=== PATIENT | female | born 1960 | race Caucasian/White ===

== ENCOUNTER 2016-11-25 00:45 | Inpatient (IN) | payer OTHER ==
[2016-11-25] MEDS ORDERED: SODIUM CHLORIDE 0.9% 1,000 ML IV STA (00:51)
[2016-11-25] MEDS ORDERED: PANTOPRAZOLE 40 MG/10 ML VIAL IVP STA (00:51)
[2016-11-25] MEDS ORDERED: ONDANSETRON 4 MG/2 ML VIAL IVP STA (00:51)
--- NOTE | 2016-11-25 01:04 | ED ---
General Adult HPI - General Chief complaint: Nausea/Vomiting/Diarrhea Stated complaint: Nausea/Vomiting/Weakness/Mouth Pain Time Seen by Provider: 11/25/16 00:49 Source: EMS, RN notes reviewed, old records reviewed Mode of arrival: EMS - History of Present Illness Initial comments: This is a 56-year-old female here for evaluation. Patient presents today for evaluation of vomiting blood. Patient has a prior history of vomiting blood, no prior history of GI bleed. No anticoagulation. Denies significant alcohol abuse. Patient is no abdominal pain. No blood in her stool. Again recent travel history sick contacts. Patient admits also weight loss nausea and spitting up blood, symptoms since June progressively worsening - Related Data Home Medications Medication Instructions Recorded Confirmed Ibuprofen [Motrin] 11/25/16 Allergies Allergy/AdvReac Type Severity Reaction Status Date / Time No Known Allergies Allergy Verified 11/25/16 02:41 Review of Systems ROS Statement: Those systems with pertinent positive or pertinent negative responses have been documented in the HPI. ROS Other: All systems not noted in ROS Statement are negative. Past Medical History Additional Past Medical History / Comment(s): ulcers History of Any Multi-Drug Resistant Organisms: None Reported Past Surgical History: No Surgical Hx Reported Past Psychological History: No Psychological Hx Reported Smoking Status: Never smoker Past Alcohol Use History: None Reported Past Drug Use History: None Reported General Exam General appearance: alert, in no apparent distress Head exam: Present: atraumatic, normocephalic, normal inspection Eye exam: Present: normal appearance, PERRL, EOMI. Absent: scleral icterus, conjunctival injection, periorbital swelling ENT exam: Present: other (Positive trismus, positive oral mass) Neck exam: Present: normal inspection. Absent: tenderness, meningismus, lymphadenopathy Respiratory exam: Present: normal lung sounds bilaterally. Absent: respiratory distress, wheezes, rales, rhonchi, stridor Cardiovascular Exam: Present: regular rate, normal rhythm, normal heart sounds. Absent: systolic murmur, diastolic murmur, rubs, gallop, clicks GI/Abdominal exam: Present: soft, normal bowel sounds. Absent: distended, tenderness, guarding, rebound, rigid Extremities exam: Present: normal inspection, full ROM, normal capillary refill. Absent: tenderness, pedal edema, joint swelling, calf tenderness Back exam: Present: normal inspection Neurological exam: Present: alert, oriented X3, CN II-XII intact Psychiatric exam: Present: normal affect, normal mood Skin exam: Present: warm, dry, intact, normal color. Absent: rash Course Vital Signs 11/25/16 11/25/16 11/25/16 00:49 01:48 02:51 Temperature 97.1 F L Pulse Rate 94 57 L 63 Respiratory 20 18 18 Rate Blood Pressure 120/60 134/79 97/56 O2 Sat by Pulse 99 100 99 Oximetry - Reevaluation(s) Reevaluation #1: 11/25/16 03:22 Spoke with on-call ENT, patient's case requires higher level of care Medical Decision Making - Medical Decision Making 48 female in the ER for evaluation throat pain mouth pain difficulty to eat, inability to swallow, inability to open mouth, patient has large oral mass both under direct and on CAT scan. Patient will be admitted for ENT evaluation oncology evaluation - Lab Data Result diagrams: 11/25/16 01:15 11/25/16 01:15 Lab Results 11/25/16 11/25/16 11/25/16 Range/Units 01:15 01:15 01:15 WBC 19.5 H (3.8-10.6) k/uL RBC 3.09 L (3.80-5.40) m/uL Hgb 9.2 L (11.4-16.0) gm/dL Hct 27.3 L (34.0-46.0) % MCV 88.1 (80.0-100.0) fL MCH 29.9 (25.0-35.0) pg MCHC 33.9 (31.0-37.0) g/dL RDW 14.5 (11.5-15.5) % Plt Count 645 H (150-450) k/uL Neutrophils % 86 % Lymphocytes % 8 % Monocytes % 4 % Eosinophils % 1 % Basophils % 0 % Neutrophils # 16.7 H (1.3-7.7) k/uL Lymphocytes # 1.6 (1.0-4.8) k/uL Monocytes # 0.7 (0-1.0) k/uL Eosinophils # 0.1 (0-0.7) k/uL Basophils # 0.0 (0-0.2) k/uL PT (9.0-12.0) sec INR (<1.1) APTT (22.0-30.0) sec Sodium 134 L (137-145) mmol/L Potassium 3.1 L (3.5-5.1) mmol/L Chloride 101 (98-107) mmol/L Carbon Dioxide 20 L (22-30) mmol/L Anion Gap 13 mmol/L BUN 8 (7-17) mg/dL Creatinine 0.70 (0.52-1.04) mg/dL Est GFR (MDRD) Af Amer >60 (>60 ml/min/1.73 sqM) Est GFR (MDRD) Non-Af >60 (>60 ml/min/1.73 sqM) Glucose 175 H (74-99) mg/dL Calcium 8.8 (8.4-10.2) mg/dL Magnesium 1.5 L (1.6-2.3) mg/dL Total Bilirubin 0.4 (0.2-1.3) mg/dL AST 12 L (14-36) U/L ALT 24 (9-52) U/L Alkaline Phosphatase 51 (38-126) U/L Total Creatine Kinase 22 L (30-135) U/L CK-MB (CK-2) <0.2 (0.0-2.4) ng/mL CK-MB (CK-2) Rel Index Troponin I <0.012 (0.000-0.034) ng/mL Total Protein 5.8 L (6.3-8.2) g/dL Albumin 3.0 L (3.5-5.0) g/dL Lipase 171 (23-300) U/L Serum Alcohol <10 mg/dL Blood Type Blood Type Recheck Antibody Screen Spec Expiration Date 11/25/16 11/25/16 Range/Units 01:15 01:15 WBC (3.8-10.6) k/uL RBC (3.80-5.40) m/uL Hgb (11.4-16.0) gm/dL Hct (34.0-46.0) % MCV (80.0-100.0) fL MCH (25.0-35.0) pg MCHC (31.0-37.0) g/dL RDW (11.5-15.5) % Plt Count (150-450) k/uL Neutrophils % % Lymphocytes % % Monocytes % % Eosinophils % % Basophils % % Neutrophils # (1.3-7.7) k/uL Lymphocytes # (1.0-4.8) k/uL Monocytes # (0-1.0) k/uL Eosinophils # (0-0.7) k/uL Basophils # (0-0.2) k/uL PT 11.7 (9.0-12.0) sec INR 1.2 (<1.1) APTT 21.3 L (22.0-30.0) sec Sodium (137-145) mmol/L Potassium (3.5-5.1) mmol/L Chloride (98-107) mmol/L Carbon Dioxide (22-30) mmol/L Anion Gap mmol/L BUN (7-17) mg/dL Creatinine (0.52-1.04) mg/dL Est GFR (MDRD) Af Amer (>60 ml/min/1.73 sqM) Est GFR (MDRD) Non-Af (>60 ml/min/1.73 sqM) Glucose (74-99) mg/dL Calcium (8.4-10.2) mg/dL Magnesium (1.6-2.3) mg/dL Total Bilirubin (0.2-1.3) mg/dL AST (14-36) U/L ALT (9-52) U/L Alkaline Phosphatase (38-126) U/L Total Creatine Kinase (30-135) U/L CK-MB (CK-2) (0.0-2.4) ng/mL CK-MB (CK-2) Rel Index Troponin I (0.000-0.034) ng/mL Total Protein (6.3-8.2) g/dL Albumin (3.5-5.0) g/dL Lipase (23-300) U/L Serum Alcohol mg/dL Blood Type A Positive Blood Type Recheck CABO Indicated Antibody Screen NEGATIVE Spec Expiration Date 11/28/2016 - 1656 - Radiology Data Radiology results: report reviewed (CT soft tissue neck is positive for a oral mass, ), image reviewed Disposition Clinical Impression: Oral cancer, Malnutrition Disposition: ADMITTED IP TO THIS [facility] Condition: Fair Referrals: None,Stated [Primary Care Provider] - 1-2 days
[2016-11-25] MEDS ORDERED: ACETAMINOPHEN IV (For NPO) 1,000 MG in EMPTY BAG 1 BAG IVPB STA (01:24)
[2016-11-25] MEDS ORDERED: LIDOCAINE VISCOUS 2% 15 ML CUP MUCOUS MEM STA (01:24)
[2016-11-25] MEDS ORDERED: RX INFO: IV CONTRAST WAS GIVEN 1 EACH MISC MISCELLANE PRN (01:24)
[2016-11-25] MEDS ORDERED: MORPHINE SULFATE 4 MG/ML SYRINGE IVP STA (01:24)
[2016-11-25 01:44] LABS: ALT 24 U/L (9-52); AST 12 U/L (14-36); Alcohol <10 mg/dL; Alkaline Phosphatase 51 U/L (38-126); Anion Gap 13 mmol/L; Blood Urea Nitrogen 8 mg/dL (7-17); Calcium 8.8 mg/dL (8.4-10.2); Carbon Dioxide 20 mmol/L (22-30); Chloride 101 mmol/L (98-107); Glucose 175 mg/dL (74-99); Magnesium 1.5 mg/dL (1.6-2.3); Non-African American GFR(MDRD) >60 (>60 ml/min/1.73 sqM); Potassium 3.1 mmol/L (3.5-5.1); Sodium 134 mmol/L (137-145); Total Bilirubin 0.4 mg/dL (0.2-1.3); Total Protein 5.8 g/dL (6.3-8.2)
[2016-11-25 01:49] LABS: Basophils % (A) 0 %; CH 29.7; CHCM 33.9; Eosinophils # (A) 0.1 k/uL (0-0.7); Eosinophils % (A) 1 %; HCT 27.3 % (34.0-46.0); HDW 2.65; HGB 9.2 gm/dL (11.4-16.0); Luc # (Auto) 0.31; Luc % (Auto) 2; Lymphocytes # (A) 1.6 k/uL (1.0-4.8); Lymphocytes % (A) 8 %; MCH 29.9 pg (25.0-35.0); MCHC 33.9 g/dL (31.0-37.0); MCV 88.1 fL (80.0-100.0); Mean Platelet Volume 7.2; Monocytes # (A) 0.7 k/uL (0-1.0); Monocytes % (A) 4 %; Neutrophils # (A) 16.7 k/uL (1.3-7.7); Neutrophils % (A) 86 %; RBC 3.09 m/uL (3.80-5.40); RDW 14.5 % (11.5-15.5); WBC 19.5 k/uL (3.8-10.6); WBC (Perox) 20.74
[2016-11-25 01:55] LABS: Creatine Kinase 22 U/L (30-135)
[2016-11-25 01:57] LABS: INR 1.2 (<1.1); Prothrombin Time 11.7 sec (9.0-12.0)
[2016-11-25 01:58] LABS: Partial Thromboplastin Time 21.3 sec (22.0-30.0)
[2016-11-25 02:08] LABS: Creatine Kinase MB <0.2 ng/mL (0.0-2.4); Troponin I <0.012 ng/mL (0.000-0.034)
--- NOTE | 2016-11-25 02:31 | CT ---
EXAMINATION TYPE: CT soft tissue neck w con DATE OF EXAM: 11/25/2016 2:08 AM COMPARISON: NONE HISTORY: Rt. Mouth pain, vomiting bright red blood, CT DLP: 299.10 mGycm Automated exposure control for dose reduction was used. CONTRAST: CT scan of the neck is performed following with IV Contrast, patient injected with 100 mL of Omnipaqu e 300. Axial images are obtained, coronal and sagittal reformatted images are reviewed. FINDINGS: There is a predominantly low density 7 x 4 cm mass in the oral cavity on the right side. The mass ext ends to the mandible and involves the prevertebral soft tissues on the right side as well as the righ t tonsil and the right side of the posterior tongue. Mass extends to the posterior nasopharynx and th e soft palate. There is normal contrast opacification of the carotid arteries and jugular veins. The epiglottis appe ars normal. The subglottic trachea appears normal. There is an enlarged 1.5 cm right submandibular ly mph node. These sub the cervical spine is intact. Mandibular salivary glands are symmetric. The super ior mediastinum appears normal. There is normal branching pattern of the great vessels on the aortic arch. The thyroid gland is symmetric. IMPRESSION: There is a large mass in the oral cavity on the right side. This is suspicious for tumor . An inflammatory mass is in the differential diagnosis. There is an enlarged right submandibular lym ph node.
[2016-11-25] MEDS: MAGNESIUM SULFATE-D5W PMX 1 GM in DEXTROSE/WATER 1 100ML.BAG IVPB SCH ×2 (02:33→04:15)
[2016-11-25] MEDS ORDERED: AMPICILLIN-SULBACTAM 3 GM in SODIUM CHLORIDE 0.9% 100 ML IVPB STA (02:38)
[2016-11-25] MEDS ORDERED: DEXAMETHASONE SOD PHOSPHATE 10 MG/ML 1 ML VIAL IV STA (02:38)
[2016-11-25] MEDS: POTASSIUM CHLORIDE 20 MEQ, LIDOCAINE 2% INJ 20 MG in SODIUM CHLORIDE 0.9% 100 ML IVPB SCH ×3 (04:22→07:55)
[2016-11-25] MEDS ORDERED: MORPHINE SULFATE 4 MG/ML SYRINGE IVP PRN (04:29)
[2016-11-25 05:47] VITALS: BMI 20.1
[2016-11-25] MEDS: SODIUM CHLORIDE 0.9% 1,000 ML IV ONE ×2 (06:23→16:23)
[2016-11-25] MEDS: AMPICILLIN-SULBACTAM 3 GM in SODIUM CHLORIDE 0.9% 100 ML IVPB SCH ×3 (07:55→18:35)
[2016-11-25] MEDS ORDERED: NOREPINEPHRINE 1 MG/ML 4 ML VIAL IV ONE (08:49)
[2016-11-25] MEDS ORDERED: SODIUM CHLORIDE 0.9% 250 ML BAG ONE (08:49)
[2016-11-25] MEDS ORDERED: SODIUM CHLORIDE 0.9% 1,000 ML BAG ONE (08:49)
--- NOTE | 2016-11-25 10:43 | CONS ---
DATE OF CONSULTATION: REASON FOR CONSULTATION: Oral cancer. HISTORY: This is a 56-year-old white female who states that she has had at least a 4 to 5 month history of progressive right-sided sore throat. She has developed further dysphagia with this and even trismus. She is able to tolerate liquids, but is not able to eat much as far solids or chew. 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 She was also seen by a dentist who recommended a biopsy. She was treated with antibiotics a couple of weeks ago, which did not help her symptoms at all. She has been spitting up some blood intermittently and has had weight loss and nausea. She did have CT scan of the neck last night, which showed a 7 x 4 cm oropharyngeal mass on the right with deep soft tissue invasion including into the prevertebral space. Past medical history is negative for heart, lung, liver or kidney disease, diabetes, seizure disorder, bleeding disorders. PAST SURGICAL HISTORY: None. ALLERGIES: No known drug allergies. MEDICATIONS AT HOME: Ibuprofen. SOCIAL HISTORY: Does not have a smoking history at all. Alcohol consumption minimal. REVIEW OF SYSTEMS: Noncontributory other than as above. PHYSICAL EXAM: GENERAL: The patient is alert, awake and oriented x3. She has no respiratory distress or stridor. Skin is pale. HEENT: Head normocephalic, atraumatic. Ears, bilateral canals clear. Tympanic membranes unremarkable and mobile. The nose shows no drainage or obstruction. Mouth and throat: Patient does have mild to moderate trismus. There is a large right oral cavity/oropharynx mass. This is in the retromolar trigone and right tonsillar fossa as where it appeared centered with a bulky mass, but also a central ulceration with minimal old blood. Oropharyngeal airway is adequate at least 2.5 cm across. The hypopharynx and larynx exam shows this does extend the lateral base of tongue on the right, but overall airway is good. Vocal cord mobility is normal. Neck is supple. There is approximately a 1.5 cm right submandibular node, but otherwise no adenopathy was noted. CT scan reviewed and reviewed with the patient and her family today as far as results. ASSESSMENT: Right oropharyngeal mass/highly suspicious for malignancy with invasion and likely secondary cervical lymphadenopathy on the right. PLAN: The patient is receiving supportive care presently including pain management and IV fluids. She is on prophylactic antibiotics although this does not appear to be infectious even though her white count was elevated. She does also have some anemia. Also had some abnormalities in her electrolytes, which are being addressed. As I had discussed with the ER physician last night, I would recommend further evaluation and treatment at a tertiary care institution such as [facility] or [facility]. The head and neck surgeon contacts at these institutions would be Dr. Garcia at [facility] and Dr. Del Castillo at [facility]. The patient will need biopsy and workup and evaluation with a bigger center, which could better managed this large mass. If it is felt that she could be treated with chemotherapy and radiotherapy here locally then this would be fine but she certainly needs evaluation including biopsy at a larger center. I did explain this to Dr. Pizano last night also and he apparently did try to transfer to [facility], but they would not accept and the other centers noted above would be more appropriate anyway. It does appear that the patient has primary service admitted to already as well as possibly oncology consult and will leave it to their discretion also. If the patient is able to go home then that consultation could be obtained as output /referral; however, if it is felt that she could not go home then she would have to be transferred. If there are questions or concerns, please feel free to contact me.
[2016-11-25] MEDS ORDERED: SODIUM CHLORIDE 0.9% 1,000 ML IV ONE (16:10)
--- NOTE | 2016-11-25 16:27 | HP ---
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 She was seen by a bunch of clinics including dentists and outpatient clinics, given antibiotics, recommended for biopsy. She came into the hospital due to worsening swallowing ability. CAT scan showed a ( ) 4 cm oropharyngeal mass in the right soft tissue invasion into the prevertebral space. Past medical history is negative for any diabetes, seizures bleeding disorders, heart, lungs, liver or kidney. PAST SURGICAL HISTORY: None. ALLERGIES: None. MEDICATIONS: Ibuprofen. SOCIAL HISTORY: No smoking or alcohol. REVIEW OF SYSTEMS: Fourteen-point review of systems negative except as mentioned above. PHYSICAL EXAM: She is thin, cachectic female. She is giving appropriate answers, alert and oriented x3. HEAD: Normocephalic, atraumatic. ENT: She has a large right oral cavity mass. She has a bulky mass on the tonsillar area, central ulceration. Ear, nose and throat consult was appreciated. CT is appreciated. ASSESSMENT: 1. Right oropharyngeal mass highly suspicious for malignancy. 2. Cervical adenopathy. PLAN: Just got an ear, nose and throat consult and discussed the case with the nurse and Kostas Ricci physician from ear, nose and throat is going to accept the transfer in this patient. There is no active bleeding as far as we could tell. We will make sure she is stable prior to her discharge.
[2016-11-25] MEDS ORDERED: NOREPINEPHRINE 16 MG in SODIUM CHLORIDE 0.9% 250 ML IV SCH (17:30)
[2016-11-25] MEDS ORDERED: PROPOFOL 500 MG in EMPTY BAG 1 BAG IV SCH ×2 (17:30→18:00)
[2016-11-25] MEDS ORDERED: PROPOFOL 50 ML IV ONE (17:48)
[2016-11-25 17:56] LABS: ALT 27 U/L (9-52); AST 21 U/L (14-36); Alkaline Phosphatase 21 U/L (38-126); Blood Urea Nitrogen 11 mg/dL (7-17); Chloride 113 mmol/L (98-107); Glucose 256 mg/dL (74-99); Magnesium 2.2 mg/dL (1.6-2.3); Non-African American GFR(MDRD) >60 (>60 ml/min/1.73 sqM); Phosphorous 4.6 mg/dL (2.5-4.5); Sodium 136 mmol/L (137-145); Total Bilirubin <0.1 mg/dL (0.2-1.3); Total Protein 2.3 g/dL (6.3-8.2)
[2016-11-25 17:57] LABS: Basophils % (A) 0 %; CH 29.4; CHCM 28.7; Eosinophils % (A) 0 %; HDW 2.81; Hypochromasia Marked; Luc # (Auto) 0.12; Luc % (Auto) 1; Lymphocytes # (A) 2.6 k/uL (1.0-4.8); Lymphocytes % (A) 15 %; MCH 28.3 pg (25.0-35.0); MCV 103.3 fL (80.0-100.0); Macrocytosis Slight; Mean Platelet Volume 8.2; Monocytes # (A) 0.7 k/uL (0-1.0); Monocytes % (A) 4 %; Neutrophils % (A) 80 %; RBC 1.16 m/uL (3.80-5.40); RDW 15.1 % (11.5-15.5); WBC 17.4 k/uL (3.8-10.6); WBC (Perox) 15.88
[2016-11-25 18:01] LABS: Anion Gap 13 mmol/L
[2016-11-25 18:06] LABS: INR 1.9 (<1.1); Partial Thromboplastin Time 48.8 sec (22.0-30.0); Prothrombin Time 18.2 sec (9.0-12.0)
[2016-11-25 18:12] LABS: Glucose,Whole Blood 234 mg/dL (75-99)
[2016-11-25 18:17] LABS: HGB 3.3 gm/dL (11.4-16.0); MCHC 27.4 g/dL (31.0-37.0)
[2016-11-25 18:18] LABS: Potassium 3.9 mmol/L (3.5-5.1)
[2016-11-25 18:19] LABS: Calcium 6.4 mg/dL (8.4-10.2); Carbon Dioxide 10 mmol/L (22-30)
--- NOTE | 2016-11-25 18:21 | XR ---
EXAMINATION TYPE: XR chest 1V portable DATE OF EXAM: 11/25/2016 6:14 PM COMPARISON: NONE HISTORY: Check tube placement TECHNIQUE: Single frontal view of the chest is obtained. FINDINGS: Heart and mediastinum are normal. Lungs are clear. There is a nasogastric tube that appear s in good position. There is endotracheal tube that appears in good position. There are chest leads. IMPRESSION: Normal chest
[2016-11-25] MEDS ORDERED: SODIUM BICARB 8.4% 50 ML SYR (1 MEQ/ML) IV STA (19:02)
[2016-11-25 19:11] LABS: ABG Base Excess -16.2 mmol/L; ABG HCO3 12 mmol/L (21-25); ABG PCO2 39 mmHg (35-45); ABG PO2 91 mmHg (83-108); ABG TCO2 13 mmol/L (19-24)
[2016-11-25 19:25] LABS: CH 30.7; CHCM 31.9; HDW 2.82; MCH 29.5 pg (25.0-35.0); MCHC 30.4 g/dL (31.0-37.0); MCV 96.9 fL (80.0-100.0); Mean Platelet Volume 8.5; RDW 13.9 % (11.5-15.5); WBC 18.7 k/uL (3.8-10.6)
[2016-11-25 19:27] LABS: HCT 17.4 % (34.0-46.0); HGB 5.3 gm/dL (11.4-16.0)
[2016-11-25 19:31] LABS: Glucose,Whole Blood 209 mg/dL (75-99)
[2016-11-25 19:45] LABS: Ionized Calcium 2.4 mg/dL (4.5-5.3)
[2016-11-25] MEDS ORDERED: CALCIUM GLUCONATE 2,000 MG in SODIUM CHLORIDE 0.9% 100 ML IVPB ONE (19:47)
[2016-11-25 19:48] LABS: INR 1.7 (<1.1); Partial Thromboplastin Time 43.8 sec (22.0-30.0); Prothrombin Time 16.4 sec (9.0-12.0)
[2016-11-25 19:50] LABS: ABG Base Excess -8.6 mmol/L; ABG HCO3 16 mmol/L (21-25); ABG PCO2 34 mmHg (35-45); ABG PH 7.31 (7.35-7.45); ABG PO2 312 mmHg (83-108); ABG TCO2 17 mmol/L (19-24)
[2016-11-25 20:30] VITALS: BP 88/53; PULSE 85; RESP 20; TEMP 97
--- NOTE | 2016-11-25 20:56 | PN ---
ADDENDUM DATE OF SERVICE: 11/25/2016; 5:45 p.m. This is a 56-year-old white female who just had a respiratory arrest. Apparently a blood vessel broke loose. She was pouring some blood out of her mouth. She went into respiratory arrest. JEAN BRIGGS was called, which patient never lost her pulse. Unable to get a low blood pressure, but during the code a blood pressure was found near 130s to 140s over 60s. The patient never lost her pulse, never went into cardiac shock. Due to the bleeding, 2 units of blood were given through transfusion and stat labs were reordered again. Dr. Kaba was called, the patient was intubated and was taken to the ICU. He will be running the ICU care. I discussed the case with the family, the 2 daughters who were here, they are comfortable with the care given and understand what happened to her. .
--- NOTE | 2016-11-25 21:13 | PN ---
DATE OF SERVICE: 11/25/2016 ADDENDUM: Saw the patient with her daughter and the nurse. Blood pressure was low. Manually it was about 80 to 90 systolic over 40 to 50. This was at 1551 on 11/25/2016. Ordered normal saline to be given. Wide open IV which was performed. Stat labs were put in at 1551. CBC and chem panel, magnesium. Patient says even though blood pressure is low she was feeling fine at that point. Her oxygen level is 100% on pulse ox. Ordered stat labs. Told the nurse to transfer patient to the ICU at 1551 and normal saline was running at wide open. Nurse to call me with results or if anything else occurred. This is on the fifth floor this occurred. We are awaiting transfer to [facility]. We are waiting transfer to the ICU at 1551, to monitor blood pressure until the transfer occurs. There is no active bleeding at this point and she said she has felt fine the patient did at 1551.
[2016-11-25 21:50] LABS: Manual Review Performed
--- NOTE | 2016-11-26 12:01 | CONS ---
DATE OF CONSULTATION: 11/25/2016 This is a delayed entry note on Ms. Aubrie Donahue who is a 56-year-old female. Patient on the fifth floor oncology unit, started bleeding from mouth. Patient has been found to large to have a large oral lesion. Patient was evaluated by ENT and recommended to be transferred to [facility] because of bleeding. Patient was intubated by the emergency room physician and 4 units of packed RBC and 4 bags of FFP were given as well along with replacement of calcium. Patient was immediately transferred to [facility] by Dr. Jett Red. For details, please refer to his note and nurse's note and flow sheet.
== END 2016-11-25 19:50 | disposition short-term general hospital (02) | DRG 146 ==
LOC: EC 00:45 → INTOOBSV 04:23 → OBSVTOIN 04:23 → 5ONC 04:23 → 6ICU 17:42
PROVIDERS: ADMIT Family Medicine; ATTEND Family Medicine
PROC: 0BH17EZ Insertion of Endotracheal Airway into Trachea, Via Natural or Artificial Opening (ICD-10-PCS; principal; 2016-11-25)
PROC: 5A1935Z Respiratory Ventilation, Less than 24 Consecutive Hours (ICD-10-PCS; 2016-11-25)
PROC: [UNRECOGNIZED PROCEDURE] (2016-11-25)
PROC: 30263N1 (ICD-10-PCS; 2016-11-25)
DX: C10.9 Malignant neoplasm of oropharynx, unspecified (principal); R09.2 Respiratory arrest; K92.0 Hematemesis; E46 Unspecified protein-calorie malnutrition; R13.10 Dysphagia, unspecified; R59.9 Enlarged lymph nodes, unspecified
CPT/HCPCS: 31500; 36415; 36600; 70491; 71010; 80051; 80053; 80320; 82330; 82550; 82553; 82805; 83690; 83735; 84100; 84484; 85025; 85027; 85384; 85610; 85730; 86850; 86900; 86901; 86920; 94002; 96365; 96366; 96367; 96375; 96376; 99285

== ENCOUNTER 2017-04-12 00:05 | Emergency (ER) | payer OTHER ==
[2017-04-12 00:18] VITALS: RESP 18; TEMP 98.5
[2017-04-12] MEDS ORDERED: SODIUM CHLORIDE 0.9% 1,000 ML IV ONE (01:32)
--- NOTE | 2017-04-12 01:38 | ED ---
General Adult HPI - General Chief complaint: ENT Stated complaint: Dental Pain Time Seen by Provider: 04/12/17 00:29 Source: patient, family, RN notes reviewed Mode of arrival: wheelchair Limitations: no limitations - History of Present Illness Initial comments: Patient is a 57-year-old female since emergency room for evaluation. Patient states she was diagnosed with oral cancer in November. Patient states she was transferred over to [facility]. Patient states the offered to a biopsy on the lesion and she refused. Patient states that she was placed on hospice. Patient states she's been placed on hospice since November. Patient states that yesterday she decided to take herself off hospice. Patient states she's here today she would like to be admitted for evaluation and treatment of her cancer. Patient states she has not been able to eat over the past few weeks due to decrease in appetite from the pain medication she was given on hospice. Patient states she feels like she is extremely malnourished and dehydrated. Patient states the right side of her face is paralyzed and swollen due to the tumor growing. Patient denies fevers or chills. Patient denies any trouble breathing. Patient denies chest pain or shortness of breath. Patient denies headache or dizziness. - Related Data Home Medications Medication Instructions Recorded Confirmed No Known Home Medications [No 04/12/17 04/12/17 Known Home Medications] Allergies Allergy/AdvReac Type Severity Reaction Status Date / Time codeine Allergy Itching Verified 04/12/17 00:18 Review of Systems ROS Statement: Those systems with pertinent positive or pertinent negative responses have been documented in the HPI. ROS Other: All systems not noted in ROS Statement are negative. Past Medical History Additional Past Medical History / Comment(s): mouth ulcers; recent weight loss over 30# in 5months, mass to right side jaw, vented nov 2016 History of Any Multi-Drug Resistant Organisms: None Reported Past Surgical History: No Surgical Hx Reported Additional Past Surgical History / Comment(s): abdominal ulcers Past Anesthesia/Blood Transfusion Reactions: No Reported Reaction Past Psychological History: No Psychological Hx Reported Smoking Status: Never smoker Past Alcohol Use History: None Reported Past Drug Use History: None Reported - Past Family History Daughter(s) Family Medical History: No Reported History Mother Additional Family Medical History / Comment(s): breast cancer General Exam - General Exam Comments Initial Comments: Laying in exam room, appears extremely malnourished Limitations: no limitations General appearance: alert, in no apparent distress Head exam: Present: other (large visual and palpable mass on right side of face and neck) Expanded Pupils: Regular, Round: Bilateral Sclera/Conjunctival: Normal Inspection: Left, Exudate: Right Respiratory exam: Present: normal lung sounds bilaterally. Absent: respiratory distress Cardiovascular Exam: Present: regular rate, normal rhythm, normal heart sounds GI/Abdominal exam: Present: soft, normal bowel sounds. Absent: distended, tenderness, guarding, rebound, rigid Extremities exam: Present: normal inspection Back exam: Present: normal inspection Neurological exam: Present: alert, oriented X3 Psychiatric exam: Present: normal affect, normal mood Skin exam: Present: warm, dry, intact. Absent: rash Course Vital Signs 04/12/17 04/12/17 00:13 02:50 Temperature 98.5 F 98.5 F Pulse Rate 59 L 74 Respiratory 18 18 Rate Blood Pressure 116/54 101/62 O2 Sat by Pulse 98 99 Oximetry Medical Decision Making - Medical Decision Making Patient is a 57-year-old female presents to the emergency room for evaluation of oral cancer. Patient was diagnosed back in November and was transferred to [facility]. Patient decided she did not want further evaluation/ treatment at that time and was placed on hospice. Patient recently took herself off of hospice yesterday. Patient here seeking treatment. Basic labs ran, no acute findings noted. It was explained to patient by myself and Dr. Rider that she will need to follow up with an oncologist at either [facility] or [facility]. Ear, nose and throat specialist did review CT from November and patient was transferred out due to the extensiveness of the cancer. Patient given information to follow-up with an oncologist. Patient states she understands everything that was discussed with her. Return parameters discussed. - Lab Data Result diagrams: 04/12/17 01:41 04/12/17 01:41 Lab Results 04/12/17 04/12/17 Range/Units 01:41 01:41 WBC 10.5 (3.8-10.6) k/uL RBC 3.64 L (3.80-5.40) m/uL Hgb 10.9 L (11.4-16.0) gm/dL Hct 32.5 L (34.0-46.0) % MCV 89.3 (80.0-100.0) fL MCH 30.0 (25.0-35.0) pg MCHC 33.6 (31.0-37.0) g/dL RDW 15.3 (11.5-15.5) % Plt Count 603 H (150-450) k/uL Neutrophils % 82 % Lymphocytes % 12 % Monocytes % 5 % Eosinophils % 0 % Basophils % 0 % Neutrophils # 8.6 H (1.3-7.7) k/uL Lymphocytes # 1.3 (1.0-4.8) k/uL Monocytes # 0.5 (0-1.0) k/uL Eosinophils # 0.0 (0-0.7) k/uL Basophils # 0.0 (0-0.2) k/uL Sodium 139 (137-145) mmol/L Potassium 3.8 (3.5-5.1) mmol/L Chloride 105 (98-107) mmol/L Carbon Dioxide 23 (22-30) mmol/L Anion Gap 11 mmol/L BUN 15 (7-17) mg/dL Creatinine 0.40 L (0.52-1.04) mg/dL Est GFR (MDRD) Af Amer >60 (>60 ml/min/1.73 sqM) Est GFR (MDRD) Non-Af >60 (>60 ml/min/1.73 sqM) Glucose 85 (74-99) mg/dL Calcium 9.7 (8.4-10.2) mg/dL Magnesium 2.0 (1.6-2.3) mg/dL Total Bilirubin 0.6 (0.2-1.3) mg/dL AST 14 (14-36) U/L ALT 18 (9-52) U/L Alkaline Phosphatase 89 (38-126) U/L Total Protein 5.6 L (6.3-8.2) g/dL Albumin 2.8 L (3.5-5.0) g/dL Disposition Clinical Impression: Oral-mouth cancer Disposition: HOME SELF-CARE Condition: Good Instructions: Mouth Care for the Cancer Patient (ED) Additional Instructions: Please follow up with an oncologist. If any new symptom arises or symptoms worsen, return to ER as soon as possible. Referrals: Jett Red MD [Primary Care Provider] - 1-2 days Time of Disposition: 02:50
[2017-04-12 01:59] LABS: Basophils % (A) 0 %; CH 29.9; CHCM 33.7; Eosinophils % (A) 0 %; HCT 32.5 % (34.0-46.0); HDW 2.42; HGB 10.9 gm/dL (11.4-16.0); Luc # (Auto) 0.11; Luc % (Auto) 1; Lymphocytes # (A) 1.3 k/uL (1.0-4.8); Lymphocytes % (A) 12 %; MCHC 33.6 g/dL (31.0-37.0); MCV 89.3 fL (80.0-100.0); Mean Platelet Volume 6.5; Monocytes # (A) 0.5 k/uL (0-1.0); Monocytes % (A) 5 %; Neutrophils # (A) 8.6 k/uL (1.3-7.7); Neutrophils % (A) 82 %; RBC 3.64 m/uL (3.80-5.40); RDW 15.3 % (11.5-15.5); WBC 10.5 k/uL (3.8-10.6); WBC (Perox) 10.63
[2017-04-12 02:08] LABS: ALT 18 U/L (9-52); AST 14 U/L (14-36); Alkaline Phosphatase 89 U/L (38-126); Anion Gap 11 mmol/L; Blood Urea Nitrogen 15 mg/dL (7-17); Calcium 9.7 mg/dL (8.4-10.2); Carbon Dioxide 23 mmol/L (22-30); Chloride 105 mmol/L (98-107); Glucose 85 mg/dL (74-99); Non-African American GFR(MDRD) >60 (>60 ml/min/1.73 sqM); Potassium 3.8 mmol/L (3.5-5.1); Sodium 139 mmol/L (137-145); Total Bilirubin 0.6 mg/dL (0.2-1.3); Total Protein 5.6 g/dL (6.3-8.2)
[2017-04-12 02:51] VITALS: BP 101/62; PULSE 74
== END 2017-04-12 03:02 | disposition home or self-care (01) ==
LOC: EC 00:05
DX: C06.9 Malignant neoplasm of mouth, unspecified (principal); E46 Unspecified protein-calorie malnutrition; Z88.5 Allergy status to narcotic agent
CPT/HCPCS: 36415; 80053; 83735; 85025; 96360; 99283